=== PATIENT | female | born 1980 | race Two or more races ===

== ENCOUNTER → 2019-03-19 | Day surgery (SDC) | payer OTHER, MEDICAID ==
[~2019-03-19] VITALS: Ht 154.9 cm; Wt 79.4 kg
[~2019-03-19] MED LIST: LACTATED RINGER'S 1,000 ML IV SCH; MIDAZOLAM HCL 1MG/1ML-2 ML VIAL ONE; MORPHINE SULF INJ 2 MG/ML SYRINGE 1ML IV ONE; MORPHINE SULFATE 4 MG/ML SYR/VIAL IV PRN; ONDANSETRON HCL 4 MG/2 ML VIAL IV ONE; ONDANSETRON HCL 4 MG/2 ML VIAL IV PRN; OXYTOCIN 20 UNT in LACTATED RINGER'S 1,000 ML IV ONE; ceFAZolin 1GM/50ML 50 ML IV ONE; ePHEDrine SULFATE 50 MG/ML AMP IV PRN; fentaNYL CITRATE 100 MCG/2 ML VL ONE; hydrALAZINE HCL 20 MG/ML VL IV PRN
[2019-03-19 14:07] LABS: Basophils # (auto) 0.1 uL; Hemoglobin 13.2 g/dL (12.2-16.2); Lymphocytes # (auto) 2.6 uL
[2019-03-19 14:09] LABS: Basophils % (auto) 0.6 % (0.0-2.0); Eosinophils # (auto) 0.1 uL; Eosinophils % (auto) 0.5 % (0.0-7.0); Hematocrit 39.6 % (36.0-46.0); Mean Corpuscular Hemoglobin 27.3 pg (28.0-32.0); Mean Corpuscular Hgb Conc. 33.3 g/dL (32.0-36.0); Monocytes # (auto) 0.9 uL; Monocytes % (auto) 8.8 % (0.0-12.0); Neutrophils # (auto) 7.1 uL; Neutrophils % (auto) 66.1 % (37.0-80.0); Platelet Count (auto) 448 10^3/uL (140-450); Red Blood Cells 4.83 10^6/uL (4.0-5.20); Red Cell Distribution Width 13.8 % (11.8-14.3); White Blood Cell 10.7 10^3/uL (4.4-10.8)
[2019-03-19 14:30] LABS: Albumin 4.1 g/dL (3.4-5.0); Calcium 9.5 mg/dL (8.5-10.1); Potassium 3.8 mmol/L (3.5-5.1)
[2019-03-19 14:35] LABS: BUN/Creatinine Ratio 19.2; Bilirubin, Total 0.7 mg/dL (0.2-1.0); Total Protein 8.2 g/dL (6.4-8.2)
[2019-03-19 17:59] LABS: Urine Bacteria NONE SEEN /hpf (None Seen); Urine Blood 3+ /uL (Negative); Urine Specific Gravity 1.017 (1.001-1.035); Urine WBC 14 /hpf (0 - 5)
[2019-03-19 19:36] LABS: INR 0.91 (0.9-1.15); Prothrombin Time 9.8 sec (9.27-12.13)
[2019-03-19 21:18] VITALS: BP 145/79
== END | disposition home or self-care (01) ==
LOC: ER 13:20 → OR 1 18:41
PROVIDERS: ATTEND Obstetrics & Gynecology
DX: O03.1 Delayed or excessive hemorrhage following incomplete spontaneous abortion (principal); I10 Essential (primary) hypertension; E66.9 Obesity, unspecified; Z68.33 Body mass index [BMI] 33.0-33.9, adult; Z98.890 Other specified postprocedural states
CPT/HCPCS: 36415; 59812; 76801; 76817; 80053; 81001; 84702; 85025; 85610; 85730; 86850; 86900; 86901; J0690; J2250; J2270; J2405; J2590; J3010

== ENCOUNTER → 2019-03-19 | Outpatient (CLI) | payer OTHER | END | disposition home or self-care (01) | LOC: LAB 08:54 | PROVIDERS: ATTEND Obstetrics & Gynecology | DX: N91.2 Amenorrhea, unspecified (principal) | CPT/HCPCS: 36415; 84144; 84702 ==

== ENCOUNTER 2020-02-25 14:00 | Inpatient (IN) | payer MEDICAID, OTHER ==
[~2020-02-25] VITALS: Ht 154.9 cm; Wt 103.0 kg
[2020-02-25] VITALS (8 sets, daily range): BP systolic 121–146; BP diastolic 60–77
[2020-02-25] MEDS ORDERED: PREN-96 PO (14:21)
[2020-02-25 14:41] LABS: Basophils # (auto) 0 10 ^3/uL (0-0.2); Eosinophils # (auto) 0 10 ^3/uL (0-0.8); Lymphocytes # (auto) 1.9 10 ^3/uL (0.4-5.4); Monocytes # (auto) 0.7 10 ^3/uL (0-1.3)
[2020-02-25 14:42] LABS: Basophils % (auto) 0.3 % (0.0-2.0); Eosinophils % (auto) 0.2 % (0.0-7.0); Hematocrit 30.6 % (36.0-46.0); Hemoglobin 10.4 g/dL (12.2-16.2); Lymphocytes % (auto) 19.3 % (10.0-50.0); Mean Corpuscular Hemoglobin 25.4 pg (28.0-32.0); Mean Corpuscular Hgb Conc. 33.9 g/dL (32.0-36.0); Mean Corpuscular Volume 74.9 fL (80.0-100.0); Monocytes % (auto) 7.2 % (0.0-12.0); Neutrophils # (auto) 7.1 10 ^3/uL (1.6-8.6); Platelet Count (auto) 402 10^3/uL (140-450); Red Blood Cells 4.09 10^6/uL (4.0-5.20); Red Cell Distribution Width 16.6 % (11.8-14.3); White Blood Cell 9.7 10^3/uL (4.4-10.8)
[2020-02-25 14:58] LABS: Albumin 2.5 g/dL (3.4-5.0); Calcium 8.8 mg/dL (8.5-10.1); Potassium 3.8 mmol/L (3.5-5.1); Uric Acid 3.6 mg/dL (2.6-6.0)
[2020-02-25 14:59] LABS: INR 0.94 (0.9-1.15); Partial Thromboplastin Time 27.1 sec (23.64-32.05)
[2020-02-25 15:01] LABS: BUN/Creatinine Ratio 11.3; Bilirubin, Total 0.4 mg/dL (0.2-1.0)
[2020-02-25 15:12] LABS: Urine Bacteria NONE SEEN /hpf (None Seen); Urine Blood Negative /uL (Negative); Urine Mucus FEW (None Seen); Urine Specific Gravity 1.021 (1.001-1.035); Urine Sperm PRESENT /hpf (None Seen); Urine WBC 1 /hpf (0 - 5)
[2020-02-25] MEDS ORDERED: hydrALAZINE HCL 20 MG/ML VL IV PRN ×2 (15:15→17:15)
[2020-02-25] MEDS ORDERED: hydrALAZINE HCL 20 MG/ML VL ONE (15:19)
[2020-02-25] MEDS: LACTATED RINGER'S 1,000 ML IV SCH ×2 (15:33→15:35)
[2020-02-25] MEDS ORDERED: LACT. RINGERS/OXYTOCIN 20UNITS 1,000 ML IV SCH (15:48)
[2020-02-25] MEDS ORDERED: TETRACAINE 1% INJ 2 ML VIAL IJ ONE (15:52)
[2020-02-25] MEDS ORDERED: MORPHINE SULF(PF) 0.5MG/ML 10ML VIAL ONE (15:57)
[2020-02-25] MEDS ORDERED: fentaNYL CITRATE 100 MCG/2 ML VL ONE (15:57)
[2020-02-25] MEDS ORDERED: MIDAZOLAM HCL 1MG/1ML-2 ML VIAL ONE (15:57)
[2020-02-25] MEDS ORDERED: ONDANSETRON HCL 4 MG/2 ML VIAL IV PRN ×2 (16:00→17:15)
[2020-02-25] MEDS ORDERED: ceFAZolin 1GM/50ML 50 ML IV SCH (16:00)
[2020-02-25] MEDS ORDERED: ceFAZolin 1GM VL IV ONE (16:15)
[2020-02-25] MEDS ORDERED: oxyTOCIN 10 UNIT/ML 10ML VIAL ONE (16:15)
[2020-02-25] MEDS ORDERED: HYDROmorphone HCL 2 MG/ML VL IV PRN (17:15)
[2020-02-25] MEDS ORDERED: LABETALOL HCL 5 MG/ML 4ML SYRINGE IV PRN (17:15)
[2020-02-25] MEDS ORDERED: DexAMETHasone SOD PHOS 10MG/1ML VIAL INJ IV PRN (17:15)
[2020-02-25] MEDS ORDERED: NALBUPHINE HCL 10 MG/1ml INJECTION SUBCUT ONE (17:15)
[2020-02-25] MEDS ORDERED: NALOXONE HCL 0.4 MG/ML VIAL IV PRN (17:15)
[2020-02-25] MEDS ORDERED: KETOROLAC TROMETH 15 mg/ml 1ML VL IV PRN (17:15)
[2020-02-25] MEDS ORDERED: MIDAZOLAM HCL 1MG/1ML-2 ML VIAL IV PRN (17:15)
[2020-02-25] MEDS ORDERED: OXYTOCIN 10UNIT/ML 1ML VIAL ONE (17:21)
[2020-02-25] MEDS: diphenhdrAMINE HCL 50 MG/1 ML VL IV PRN (19:49)
[2020-02-25 22:22] LABS: Basophils # (auto) 0 10 ^3/uL (0-0.2); Basophils % (auto) 0.2 % (0.0-2.0); Eosinophils # (auto) 0 10 ^3/uL (0-0.8); Eosinophils % (auto) 0.2 % (0.0-7.0); Hematocrit 31.3 % (36.0-46.0); Hemoglobin 9.9 g/dL (12.2-16.2); Lymphocytes # (auto) 1.8 10 ^3/uL (0.4-5.4); Mean Corpuscular Hemoglobin 23.9 pg (28.0-32.0); Mean Corpuscular Hgb Conc. 31.5 g/dL (32.0-36.0); Mean Corpuscular Volume 75.8 fL (80.0-100.0); Monocytes # (auto) 0.7 10 ^3/uL (0-1.3); Monocytes % (auto) 5.5 % (0.0-12.0); Neutrophils # (auto) 10.2 10 ^3/uL (1.6-8.6); Neutrophils % (auto) 80.1 % (37.0-80.0); Platelet Count (auto) 387 10^3/uL (140-450); Red Blood Cells 4.13 10^6/uL (4.0-5.20); Red Cell Distribution Width 16.5 % (11.8-14.3); White Blood Cell 12.8 10^3/uL (4.4-10.8)
[2020-02-26] VITALS (10 sets, daily range): BP systolic 120–133; BP diastolic 64–83
[2020-02-26] MEDS: ceFAZolin 1GM/50ML 50 ML IV SCH ×3 (00:05→16:11)
[2020-02-26] MEDS: LACTATED RINGER'S 1,000 ML IV SCH ×2 (00:07→05:41)
[2020-02-26] MEDS: diphenhdrAMINE HCL 50 MG/1 ML VL IV PRN ×2 (00:15→04:59)
[2020-02-26 04:06] LABS: RPR Non Reactive (Non Reactive)
[2020-02-26] MEDS: MORPHINE SULFATE 4 MG/ML SYR/VIAL IV PRN ×2 (04:24→09:21)
[2020-02-26] MEDS ORDERED: LACTATED RINGER'S 1,000 ML IV ONE (05:39)
[2020-02-26 06:05] LABS: Basophils # (auto) 0 10 ^3/uL (0-0.2); Basophils % (auto) 0.2 % (0.0-2.0); Eosinophils # (auto) 0 10 ^3/uL (0-0.8); Red Cell Distribution Width 16.7 % (11.8-14.3)
[2020-02-26 06:07] LABS: Eosinophils % (auto) 0.4 % (0.0-7.0); Hematocrit 28.2 % (36.0-46.0); Hemoglobin 9.4 g/dL (12.2-16.2); Lymphocytes # (auto) 1.9 10 ^3/uL (0.4-5.4); Lymphocytes % (auto) 20.6 % (10.0-50.0); Mean Corpuscular Hemoglobin 25.1 pg (28.0-32.0); Mean Corpuscular Hgb Conc. 33.2 g/dL (32.0-36.0); Mean Corpuscular Volume 75.4 fL (80.0-100.0); Monocytes # (auto) 0.8 10 ^3/uL (0-1.3); Monocytes % (auto) 8.6 % (0.0-12.0); Neutrophils # (auto) 6.3 10 ^3/uL (1.6-8.6); Neutrophils % (auto) 70.2 % (37.0-80.0); Nucleated Red Blood Cells % 0.1 %; Platelet Count (auto) 353 10^3/uL (140-450); Red Blood Cells 3.75 10^6/uL (4.0-5.20)
[2020-02-26] MEDS ORDERED: BISACODYL 10 MG RECT SUPP PR PRN (09:15)
[2020-02-26] MEDS ORDERED: HYDROcodone-ACET 5/325MG TAB PO PRN (09:15)
[2020-02-26] MEDS: DOCUSATE CALCIUM 240 MG CAP PO SCH (10:29)
[2020-02-26] MEDS: DOCUSATE SOD 100 MG CAP PO SCH ×2 (10:30→21:32)
[2020-02-26] MEDS: SIMETHICONE 80 MG CHEWABLE TABLET PO SCH ×3 (12:00→21:32)
[2020-02-26] MEDS: HYDROcodone-ACET 5/325MG TAB PO PRN ×2 (12:00→21:34)
[2020-02-26] MEDS: IBUPROFEN 800 MG TAB PO PRN (17:37)
[2020-02-27] MEDS: IBUPROFEN 800 MG TAB PO PRN ×2 (02:56→21:33)
[2020-02-27 02:57] VITALS: BP 116/72
[2020-02-27] MEDS: SIMETHICONE 80 MG CHEWABLE TABLET PO SCH ×4 (05:34→21:33)
[2020-02-27] MEDS: HYDROcodone-ACET 5/325MG TAB PO PRN ×3 (05:46→17:31)
[2020-02-27 07:15] VITALS: BP 126/60
[2020-02-27] MEDS: DOCUSATE SOD 100 MG CAP PO SCH ×2 (09:30→21:33)
[2020-02-27] MEDS: DOCUSATE CALCIUM 240 MG CAP PO SCH (09:31)
[2020-02-27 11:15] VITALS: BP 138/71
[2020-02-27 15:15] VITALS: BP 126/81
[2020-02-27 23:00] VITALS: BP_SYST 139; BP_DIAS 18; BP_DIAS 75
[2020-02-28 03:06] VITALS: BP 135/71
[2020-02-28] MEDS: SIMETHICONE 80 MG CHEWABLE TABLET PO SCH (05:28)
[2020-02-28 07:09] VITALS: BP 138/84
== END 2020-02-28 09:18 | disposition home or self-care (01) | DRG 540 ==
LOC: LDRP 14:00 → OBSVTOIN 14:50 → LDRP 16:18
PROVIDERS: ADMIT Obstetrics & Gynecology; ATTEND Obstetrics & Gynecology
PROC: 10D00Z1 Extraction of Products of Conception, Low, Open Approach (ICD-10-PCS; principal; 2020-02-25 15:55)
DX: O13.4 Gestational [pregnancy-induced] hypertension without significant proteinuria, complicating childbirth (principal); E66.01 Morbid (severe) obesity due to excess calories; Z37.0 Single live birth; Z3A.38 38 weeks gestation of pregnancy; O99.214 Obesity complicating childbirth; O14.94 Unspecified pre-eclampsia, complicating childbirth; O34.219 Maternal care for unspecified type scar from previous cesarean delivery
CPT/HCPCS: 36415; 51702; 59025; 80053; 81001; 84112; 84550; 85025; 85610; 85730; 86592; 86850; 86900; 86901; 94760; 96361; 96366; 96374; 96375; G0378; J0690; J2250; J2590

== ENCOUNTER 2021-02-19 16:36 | Observation (INO) | payer MEDICAID ==
[~2021-02-19] VITALS: Ht 154.9 cm; Wt 102.1 kg
[~2021-02-19 16:36] MED LIST changes: -LACTATED RINGER'S 1,000 ML IV SCH; -MIDAZOLAM HCL 1MG/1ML-2 ML VIAL ONE; -MORPHINE SULF INJ 2 MG/ML SYRINGE 1ML IV ONE; -MORPHINE SULFATE 4 MG/ML SYR/VIAL IV PRN; -ONDANSETRON HCL 4 MG/2 ML VIAL IV ONE; -ONDANSETRON HCL 4 MG/2 ML VIAL IV PRN; -OXYTOCIN 20 UNT in LACTATED RINGER'S 1,000 ML IV ONE; +PREN-96 PO; -ceFAZolin 1GM/50ML 50 ML IV ONE; -ePHEDrine SULFATE 50 MG/ML AMP IV PRN; -fentaNYL CITRATE 100 MCG/2 ML VL ONE; -hydrALAZINE HCL 20 MG/ML VL IV PRN
[2021-02-19 16:38] VITALS: BP 132/67
== END 2021-02-19 20:16 | disposition home or self-care (01) ==
LOC: ER 16:36 → LDRP 17:13
PROVIDERS: ADMIT Obstetrics & Gynecology; ATTEND Obstetrics & Gynecology
DX: O9A.213 Injury, poisoning and certain other consequences of external causes complicating pregnancy, third trimester (principal); S83.91XA Sprain of unspecified site of right knee, initial encounter; O43.213 Placenta accreta, third trimester; Z3A.30 30 weeks gestation of pregnancy; Z90.49 Acquired absence of other specified parts of digestive tract; Z98.891 History of uterine scar from previous surgery; W19.XXXA Unspecified fall, initial encounter; Y92.89 Other specified places as the place of occurrence of the external cause; Y93.89 Activity, other specified; Y99.8 Other external cause status
CPT/HCPCS: 59025; 76815; 81002; 99284; G0378